=== PATIENT | female | born 1985 | race Caucasian/White ===

== ENCOUNTER → 2016-11-26 | Outpatient (CLI) | payer BC ==
[~2016-11-26] MED LIST: OXYC-643 PO; PRENTAB26 PO; SPT/ PO
[2016-11-26 18:52] LABS: HEMATOCRIT 36.7 % (37-47); MEAN CELL VOLUME 74.3 fL (80-100); MEAN CORPUSCULAR HEMOGLOBIN 24.1 pg (25-34); MEAN CORPUSCULAR HGB CONC 32.4 g/dl (32-36); MEAN PLATELET VOLUME 9.9 fL (7.4-10.4); PLATELET COUNT 259 K/uL (130-400); RED BLOOD COUNT 4.94 M/uL (4.2-5.4); WHITE BLOOD COUNT 5.83 K/uL (4.8-10.8)
[2016-11-26 19:12] LABS: BLOOD UREA NITROGEN 21 mg/dl (7-18); BUN/CREATININE RATIO 24.1 (10-20); CALCIUM 8.9 mg/dl (8.5-10.1); CARBON DIOXIDE 29 mmol/L (21-32); CHLORIDE 101 mmol/L (98-107); CREATININE 0.89 mg/dl (0.60-1.20); GLUCOSE 106 mg/dl (70-99); POTASSIUM 3.9 mmol/L (3.5-5.1); SODIUM 139 mmol/L (136-145)
[2016-11-26 19:13] LABS: PROTHROMBIN TIME (PATIENT) 10.9 SECONDS (9.0-12.0)
[2016-11-26 19:42] LABS: HEPATITIS B AB NEG
== END | disposition home or self-care (01) ==
LOC: C.LAB 17:39
PROVIDERS: ATTEND Obstetrics & Gynecology Gynecology
DX: Z01.812 Encounter for preprocedural laboratory examination (principal)

== ENCOUNTER 2017-03-05 18:15 | Emergency (ER) | payer BC ==
[~2017-03-05] VITALS: Ht 170.2 cm; Wt 81.9 kg
[2017-03-05 18:19] VITALS: TEMP 36.7; Ht 170.2 cm; Wt 81.9 kg
--- NOTE | 2017-03-05 18:44 | EMERGENCY ROOM VISIT NOTE ---
History Report prepared by Jodiibkizzy: Amparo Jackson Under the Supervision of: Dr. Forrest Torres D.O. First contact with patient: 18:24 Chief Complaint: MENTAL HEALTH EVALUATION Stated Complaint: MENTAL HEALTH History of Present Illness The patient is a 31 year old female who presents to the Emergency Room with complaints of worsening depression. This afternoon the patient was seen by Vivi Pete PA-C, at [facility] and was referred to the ED for further evaluation after she made statements to Vivi about wanting to hurt herself and writing a detailed suicide note about what to do if she "was not here anymore". Vivi Pete faxed over a signed 302 petition for the patient. The patient herself denies anything happening recently that has caused her depression. She denies any recent fevers or illnesses. She currently has her menstrual period and states it has been normal. 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 She denies any prior history of depression or anxiety and states she takes no daily medications. She denies telling anyone at [facility] today that she wanted to hurt herself. Source of History: patient, nursing staff Onset: [employer] Position: other (global) Quality: other (depression) Timing: worsening Associated Symptoms: No fevers Review of Systems See HPI for pertinent positives & negatives. A total of 10 systems reviewed and were otherwise negative. Social History Smoking Status: Never Smoker Alcohol Use: occasionally Drug Use: none Marital Status: single, Housing Status: lives alone Occupation Status: employed Current/Historical Medications No Active Prescriptions or Reported Meds Allergies Coded Allergies: Cephalexin (Verified Allergy, Unknown, rash, 03/05/17) Physical Exam Vital Signs Date Time Temp Pulse Resp B/P Pulse Ox O2 Delivery O2 Flow Rate FiO2 03/05/17 18:19 36.7 78 18 124/75 97 Room Air Physical Exam GENERAL: Patient is awake, alert, but very guarded and anxious appearing. Patient would follow commands intermittently but also appeared to be ignoring me or responding to internal stimuli. EYES: The conjunctivae are clear. The pupils are round and reactive. EARS, NOSE, MOUTH AND THROAT: The nose is without any evidence of any deformity. Mucous membranes are moist tongue is midline NECK: The neck is nontender and supple. RESPIRATORY: Normal respiratory effort is noted there is no evidence of wheezing rhonchi or rales CARDIOVASCULAR: Regular rate and rhythm noted there no murmurs rubs or gallops normal S1 normal S2 GASTROINTESTINAL: The abdomen is soft. Bowel sounds are present in all quadrants. Abdomen is nontender MUSCULOSKELETAL/EXTREMITIES: There is no evidence of gross deformity full range of motion is noted in the hips and shoulders SKIN: There is no obvious evidence of any rash. There are no petechiae, pallor or cyanosis noted. NEUROLOGIC: Patient is awake alert and oriented x3 strength is symmetric patellar reflexes are 2+ bilaterally PSYCHIATRIC: Patient was guarded appearing. Patient put sunglasses on and would not look at the examiner most of the time. Patient was very evasive and vague. She was denying SI but did admit to this to her primary care provider. Medical Decision & Procedures Laboratory Results 03/05/17 19:27 Red Blood Count 5.00, Mean Corpuscular Volume 75.6, Mean Corpuscular Hemoglobin 22.4, Mean Corpuscular Hemoglobin Concent 29.6, Mean Platelet Volume 9.8, Neutrophils (%) (Auto) 50.1, Lymphocytes (%) (Auto) 40.0, Monocytes (%) (Auto) 7.9, Eosinophils (%) (Auto) 1.6, Basophils (%) (Auto) 0.2, Neutrophils # (Auto) 2.17, Lymphocytes # (Auto) 1.73, Monocytes # (Auto) 0.34, Eosinophils # (Auto) 0.07, Basophils # (Auto) 0.01 03/05/17 19:27 Test 03/05/17 19:27 03/05/17 20:20 White Blood Count 4.33 K/uL (4.8-10.8) Red Blood Count 5.00 M/uL (4.2-5.4) Hemoglobin 11.2 g/dL (12.0-16.0) Hematocrit 37.8 % (37-47) Mean Corpuscular Volume 75.6 fL (80-100) Mean Corpuscular Hemoglobin 22.4 pg (25-34) Mean Corpuscular Hemoglobin Concent 29.6 g/dl (32-36) Platelet Count 259 K/uL (130-400) Mean Platelet Volume 9.8 fL (7.4-10.4) Neutrophils (%) (Auto) 50.1 % Lymphocytes (%) (Auto) 40.0 % Monocytes (%) (Auto) 7.9 % Eosinophils (%) (Auto) 1.6 % Basophils (%) (Auto) 0.2 % Neutrophils # (Auto) 2.17 K/uL (1.4-6.5) Lymphocytes # (Auto) 1.73 K/uL (1.2-3.4) Monocytes # (Auto) 0.34 K/uL (0.11-0.59) Eosinophils # (Auto) 0.07 K/uL (0-0.5) Basophils # (Auto) 0.01 K/uL (0-0.2) RDW Standard Deviation 40.6 fL (36.4-46.3) RDW Coefficient of Variation 14.7 % (11.5-14.5) Immature Granulocyte % (Auto) 0.2 % Immature Granulocyte # (Auto) 0.01 K/uL (0.00-0.02) Anion Gap 4.0 mmol/L (3-11) Est Creatinine Clear Calc Drug Dose 112.5 ml/min Estimated GFR () 114.8 Estimated GFR (Non- 99.1 BUN/Creatinine Ratio 22.2 (10-20) Calcium Level 8.4 mg/dl (8.5-10.1) Total Bilirubin 0.1 mg/dl (0.2-1) Direct Bilirubin < 0.1 mg/dl (0-0.2) Aspartate Amino Transf (AST/SGOT) 13 U/L (15-37) Alanine Aminotransferase (ALT/SGPT) 24 U/L (12-78) Alkaline Phosphatase 61 U/L (45-117) Total Protein 7.2 gm/dl (6.4-8.2) Albumin 3.9 gm/dl (3.4-5.0) Thyroid Stimulating Hormone (TSH) 1.450 uIu/ml (0.300-4.500) Salicylates Level < 1.7 mg/dl (2.8-20) Acetaminophen Level < 2 ug/ml (10-30) Urine Color YELLOW Urine Appearance CLEAR (CLEAR) Urine pH 8.0 (4.5-7.5) Urine Specific [place] 1.008 (1.000-1.030) Urine Protein NEG (NEG) Urine Glucose (UA) NEG (NEG) Urine Ketones NEG (NEG) Urine Occult Blood NEG (NEG) Urine Nitrite NEG (NEG) Urine Bilirubin NEG (NEG) Urine Urobilinogen NEG (NEG) Urine Leukocyte Esterase TRACE (NEG) Urine WBC (Auto) 1-5 /hpf (0-5) Urine RBC (Auto) 0-4 /hpf (0-4) Urine Hyaline Casts (Auto) 0 /lpf (0-5) Urine Epithelial Cells (Auto) >30 /lpf (0-5) Urine Bacteria (Auto) NEG (NEG) Urine Test NEG (NEG) Urine Opiates Screen NEG (NEG) Urine Methadone, Qualitative NEG (NEG) Urine Barbiturates NEG (NEG) Urine Phencyclidine (PCP) Level NEG (NEG) Ur Amphetamine/Methamphetamine NEG (NEG) MDMA (Ecstasy) Screen NEG (NEG) Urine Benzodiazepines Screen NEG (NEG) Urine Cocaine Metabolite NEG (NEG) Urine Marijuana (THC) NEG (NEG) Laboratory results per my review. ED Course 1828: The patient was evaluated in room A8. A complete history and physical examination were performed. 1839: I reviewed the patient's visit note from her visit with FELIX Avery, at [facility] today. 1949: I reevaluated the patient. She has become more agitated and is now accompanied by hospital security in her exam room. I will place medication orders to help her calm down. 2007: Lorazepam 1 mg IM, Haldol 5 mg IM. 2024: Nursing informed me a [employer] loan representative is in the room evaluating the patient. 2039: This patient is a sign out to Dr. Bolanos pending disposition. A 302 petition has been signed on the patient. Medical Decision Prior records/ancillary studies reviewed. Triage Nursing notes reviewed. The patient's history was concerning for possible psychiatric disturbance. Differential diagnosis: Etiologies such as mood disorder, infection, hypoglycemia, electrolyte abnormalities, cardiac sources, intracerebral event, toxicologic, neurologic, as well as others were entertained. Additional history was obtained from the patient's clinic visit note. The patient is a 31-year-old female who presented to the emergency Department by private vehicle for an acute mental health evaluation. The patient is very vague about her complaints. She does not tell me the complete story. She was evaluated multiple times. The patient was initially evaluated by the [facility] emergency Department case management rn. The patient apparently went to her primary care physician's office today because of depression. The patient had an episode of crying and laid in the floor in a bal in the lateral recumbent position. It was made known to her primary care physician's office today that she made a note outlining what she wanted to have done after she and in for that she would hurt herself. The patient arrived at the emergency department and was medically cleared. Initially she would not talk to me. She did not answer questions appropriately. She completely denied any suicidal ideation. I do not feel that she would be a good candidate for a voluntary admission and I do not feel comfortable that she would be safe to discharge to home at this time. For this reason a 302 petition was filled out. I reviewed the 302 petition. The patient is currently being evaluated by [facility]. A bed search is currently underway. The patient was signed out to the evening physician. Please see his note for continuation of care. Impression Primary Impression: Depression Additional Impression: Suicidal ideation Scribe Attestation The scribe's documentation has been prepared under my direction and personally reviewed by me in its entirety. I confirm that the note above accurately reflects all work, treatment, procedures, and medical decision making performed by me. Departure Information Dispostion Still a Patient (This patient is a sign out to Dr. Bolanos pending disposition. A 302 petition has been signed on the patient. ) Prescriptions No Active Prescriptions or Reported Meds Referrals No Doctor, Assigned (PCP) Patient Instructions My [facility] Problem Qualifiers Primary Impression: Depression Depression Type: unspecified Qualified Codes: F32.9 - Major depressive disorder, single episode, unspecified
[2017-03-05 19:43] LABS: BASO % 0.2 %; BASO ABS # 0.01 K/uL (0-0.2); COMPLETE YES; EOS % 1.6 %; HEMATOCRIT 37.8 % (37-47); IG% 0.2 %; LYMPH ABS # 1.73 K/uL (1.2-3.4); MEAN CELL VOLUME 75.6 fL (80-100); MEAN CORPUSCULAR HEMOGLOBIN 22.4 pg (25-34); MEAN CORPUSCULAR HGB CONC 29.6 g/dl (32-36); MEAN PLATELET VOLUME 9.8 fL (7.4-10.4); MONO % 7.9 %; NEUT % 50.1 %; PLATELET COUNT 259 K/uL (130-400); WHITE BLOOD COUNT 4.33 K/uL (4.8-10.8)
[2017-03-05 20:02] LABS: ACETAMINOPHEN < 2 ug/ml (10-30); ALT/SGPT 24 U/L (12-78); AST/SGOT 13 U/L (15-37); BLOOD UREA NITROGEN 18 mg/dl (7-18); BUN/CREATININE RATIO 22.2 (10-20); CALCIUM 8.4 mg/dl (8.5-10.1); CARBON DIOXIDE 32 mmol/L (21-32); CHLORIDE 106 mmol/L (98-107); CREATININE 0.79 mg/dl (0.60-1.20); GLUCOSE 97 mg/dl (70-99); POTASSIUM 4.1 mmol/L (3.5-5.1); SODIUM 142 mmol/L (136-145)
[2017-03-05] MEDS ORDERED: LORAZEPAM 2 MG/ML 1 ML VIAL IM STA (20:08)
[2017-03-05] MEDS ORDERED: HALOPERIDOL LACTATE 5 MG/ML 1 ML VIAL IM STA (20:08)
[2017-03-05 20:13] LABS: ALKALINE PHOSPHATASE 61 U/L (45-117)
[2017-03-05 20:36] LABS: URINE APPEARANCE CLEAR (CLEAR); URINE BILIRUBIN NEG (NEG); URINE COLOR YELLOW; URINE EPITHELIAL CELL AUTO >30 /lpf (0-5); URINE NITRITE NEG (NEG); URINE SPECIFIC GRAVITY 1.008 (1.000-1.030); UROBILINOGEN NEG (NEG)
[2017-03-05 20:38] LABS: MANUAL MICROSCOPIC REQUIRED? NO; REVIEW REQ? NO
[2017-03-05 21:00] LABS: BENZODIAZEPINE, URINE NEG (NEG); COCAINE,URINE NEG (NEG); PHENCYCLIDINE, URINE NEG (NEG)
[2017-03-05 22:43] VITALS: BP 115/78; PULSE 78; O2SAT 98
== END 2017-03-06 00:42 ==
LOC: C.EDB 18:16 → C.EDA 03-06 00:42
DX: F32.9 Major depressive disorder, single episode, unspecified (principal); R45.851 Suicidal ideations; Z88.8 Allergy status to other drugs, medicaments and biological substances